=== PATIENT | female | born 1940 | race Caucasian/White ===

== ENCOUNTER → 2016-11-13 | Outpatient (CLI) | payer OTHER ==
[~2016-11-13] MED LIST: ACULAR10 ML OPHTHALMIC; ADULT LOW DOSE81 MG PO; ADVIL100 M2; ADVIL100 M2 PO; ALBUTEROL INH INH; CALCIUM 500 WI1 EAC3 PO; CARDIO OMEGA B1 EACH PO; CELEBREX 200 M200 M1 PO; COUMADIN 5 MG TA5 M1; ECOTRIN325 MG PO; FLOVENT HFA 1110 MCG INH; MULTIVITAMINS PO; NEXIUM40 MG PO; OMNARIS NASAL; PATANASE30.5 GM NASAL; PEPCID40 MG PO; ROBAXIN 750 MG750 M1 PO; SIMVASTATIN40 MG PO; SINGULAIR 10 MG10 M1 PO; TYLENOL EX-STR500 M2; VITAMIN D1000 UNI1 PO
== END ==
LOC: MRI 13:42
DX: M19.011 Primary osteoarthritis, right shoulder (principal); M25.411 Effusion, right shoulder; M75.21 Bicipital tendinitis, right shoulder; M75.101 Unspecified rotator cuff tear or rupture of right shoulder, not specified as traumatic; M25.511 Pain in right shoulder

== ENCOUNTER → 2017-09-13 | Outpatient (CLI) | payer OTHER ==
[~2017-09-13] MED LIST changes: +ACULAR 0.5% EYE5 ML OPHTHALMIC; -ACULAR10 ML OPHTHALMIC; +ASPIR 8181 MG PO; +COMBIVENT INH; +DEXILANT60 MG PO; -FLOVENT HFA 1110 MCG INH; +FLOVENT HFA 4444 MCG INH; +QNASL8.7 GM NASAL
== END ==
LOC: MRI 09:21
DX: S43.491A Other sprain of right shoulder joint, initial encounter (principal); M19.011 Primary osteoarthritis, right shoulder; M25.411 Effusion, right shoulder; X58.XXXA Exposure to other specified factors, initial encounter; Y93.89 Activity, other specified; Y92.89 Other specified places as the place of occurrence of the external cause; Y99.8 Other external cause status

== ENCOUNTER 2017-11-27 05:28 | Inpatient (IN) | payer OTHER ==
[2017-11-18 13:22] LABS: HEMOGLOBIN 13.7 gm/dL (12.0-15.0); MCH 29.5 pg (26.0-34.0); MCHC 33.5 g/dL (28.0-37.0); MCV 88.1 fL (80.0-100.0); RBC 4.66 mil/uL (4.20-5.00); RDW 14.6 % (10.5-14.5); WBC 6.8 thou/uL (4.0-11.0)
[2017-11-18 13:29] LABS: URINE BILIRUBIN NEGATIVE (Negative); URINE BLOOD TRACE (Negative); URINE CLARITY CLEAR; URINE COLOR YELLOW; URINE GLUCOSE-RANDOM* NEGATIVE (Negative); URINE KETONES NEGATIVE (Negative); URINE NITRITE-REFLEX NEGATIVE (Negative); URINE PROTEIN (DIPSTICK) NEGATIVE (Negative); URINE UROBILINOGEN 0.2 E.U./dl (0.2-1.0)
[2017-11-18 13:31] LABS: URINE LEUKOCYTES-REFLEX 1+ (Negative)
[2017-11-18 13:35] LABS: CASTS None Seen /LPF (None Seen); CRYSTALS None Seen /LPF (None Seen); SQUAMOUS >10 Many /LPF (0-3); URINE RBC 0-2 Rare /HPF (0-2); URINE WBC-REFLEX 0-5 Rare /HPF (0-5)
[2017-11-18 13:36] LABS: BACTERIA-REFLEX None Seen /HPF (None Seen)
[2017-11-18 13:40] LABS: CALCIUM 9.3 mg/dL (8.5-10.1); CREATININE 0.7 mg/dL (0.6-1.0); POTASSIUM 4.1 mmol/L (3.5-5.1)
[2017-11-18 13:41] LABS: PROTIME 10.3 Seconds (9.3-11.4)
[~2017-11-27] VITALS: Ht 160 cm; Wt 71.7 kg
[2017-11-27] VITALS (7 sets, daily range): BP systolic 90–152; BP diastolic 51–79
--- NOTE | ~2017-11-27 | O ---
[facility] [place] [address] OPERATIVE REPORT Name: NNEKA TREJO Room #: 407-P ADM IN M.R.#: [id number] Admission: 11/27/17 Attend Phys: Casa Marques Discharge: Date of : 44 Report #: [id number] THIS REPORT FOR: //name// CC: Casa Bar DATE OF SERVICE: 11/27/2017 PREOPERATIVE DIAGNOSES: Right shoulder pain, osteoarthritis, biceps tendinopathy. POSTOPERATIVE DIAGNOSES: Right shoulder pain, osteoarthritis, biceps tendinopathy with intraarticular loose body. PROCEDURE PERFORMED: Right total shoulder arthroplasty with open biceps tenodesis, intraarticular loose body removal. SURGEON: Casa Riley MD ANESTHESIA: General with preoperative ultrasound-guided interscalene block. FLUIDS: 900 mL crystalloid. ESTIMATED BLOOD LOSS: Approximately 50 mL. IMPLANTS UTILIZED: DePuy Global Unite size 10 humeral stem with 135 degree proximal body, 44 x 18 eccentric humeral head and a size 40 anchor peg glenoid. DESCRIPTION OF PROCEDURE: After proper identification of the patient and operative site in preoperative holding area, the operative site was signed by myself. Prophylactic antibiotics given. The patient elected to receive an interscalene block after reviewing the risks, benefits, alternatives and potential complications with anesthesia. After satisfactory block, the patient was then brought back to the operative suite. The patient has MULTIPLE MEDICATIONS ALLERGIES and/or sensitivities, which we reviewed potential treatment options and medication usage preoperatively. The patient was brought back to the operative suite after induction of satisfactory general anesthesia per endotracheal tube. She was carefully positioned in the beach chair position with head of bed elevated approximately 40 degrees. Great care was taken to position her cervical spine in a neutral position as she has significant sensitivity with positioning of this. Right shoulder was sterilely prepped and draped in usual manner. Final skin draping was with Ioban. Anterior deltopectoral approach was planned. A Eferio limb positioning system was utilized throughout the entire procedure to aid in patient limb positioning. Anterior deltopectoral approach was planned. Skin was incised sharply. Full thickness skin flaps were developed. Cephalic vein was identified and retracted [address] [address] OPERATIVE REPORT Name: NNEKA TREJO JAMIL Room #: 407-P ADM IN M.R.#: [id number] Admission: 11/27/17 Attend Phys: Casa Marques Discharge: Date of : 44 Report #: [id number] laterally. Subdeltoid adhesions were carefully released. A Tata deltoid retractor was utilized to retract the soft tissues. At this point, a tenosynovitis about the biceps tendon and partial thickness tearing was noted. This was tenodesed to the undersurface of the pectoralis major tendon. The bicipital groove was then opened as well as the rotator interval. Joint fluid was evacuated. Anterior circumflex vessels were identified, ligated and cauterized. A lesser tuberosity osteotomy was performed using a flexible osteotome. The anterior capsule was carefully excised off the humerus. Humeral head was then rotated into the wound. Extensive arthrosis was noted, eburnation of the bone, large peripheral spurring, as well as an intraarticular loose body within the subscapularis recess, which was evacuated and it measured approximately 1 cm in size. Peripheral osteophytes were carefully removed and a humeral head osteotomy was performed in approximately 25 degrees of retroversion, matching her kalispel retroversion. The proximal humerus had a small cyst, but still within the metaphyseal region, but this still appeared to be amenable to primary press-fit type fixation. Hand reaming up to a size 10 stem was performed which matched the preoperative templating. Trial stem was carefully inserted and a protection plate was then placed about the proximal humerus. The supraspinatus, infraspinatus and teres minor were otherwise intact. At this point, the joint was carefully distracted and the labrum and biceps tendon were removed circumferentially. Very thickened anterior capsule was carefully excised and an anterior Bankart retractor was used to retract the subscapularis. Axillary nerve was identified and protected throughout the entire procedure. The inferior capsule was carefully released off the glenoid. There was excellent glenoid visualization. Small amount of posterior wear and a biconcave appearance to the glenoid was noted. The +3 40 trial provided the best overall fit and ability to center the pin and ream the high side. Guide pin was inserted into the glenoid. Its position was verified by palpation as well. After this was satisfactory placed, the glenoid face was reamed. Any remaining soft tissue was then carefully removed around this. After a satisfactory reaming of the glenoid was performed, a step drill was utilized. The multipin guide was carefully inserted and the peripheral pegs were drilled. Derotation pegs were utilized, size 40 mm trial was inserted. It had excellent fit and stability. This was removed. Glenoid was irrigated with antibiotic irrigant. FloSeal was utilized and bone graft was applied to the implants and cement was prepared and mixed, it was placed within a Eliu syringe. The FloSeal was irrigated out. This area was dried, the peripheral pegs were pressurized with a Eliu syringe and cement and then the bone grafted glenoid was carefully impacted into position. It had excellent fit and stability, was held firmly in place until the cement had cured. At this point, it was protected with plastic dura. Humerus was delivered and a 44 x 18 head eccentric in nature provided the best overall recreation of the proximal humeral anatomy. The Global Unite brosteotome was used and inserted. Trial implants revealed a size 10 stem with a 44 x 18 head, 135 degree body provided the best overall fit and stability and these were what was implanted. The four #2 FiberWires were placed through drill holes in the anterior aspect of the humerus. The [address] [address] OPERATIVE REPORT Name: NNEKA TREJO Room #: 407-P ADM IN M.R.#: [id number] Admission: 11/27/17 Attend Phys: Casa Marques Discharge: Date of : 44 Report #: [id number] 2 were wrapped around the stem, which was carefully impacted into position, it had excellent purchase and stability. The head was then positioned eccentricity, was placed superiorly and there is approximately 50% translation when this was reduced. Again, overall good recreation of the proximal humeral anatomy. The joint was thoroughly irrigated with antibiotic irrigant. The lesser tuberosity was reduced and the subscapularis was repaired with modified Dilan-Maldonado technique sutures. The four #2 FiberWires were tied and the #2 FiberWire was used to close the lateral portion of the rotator interval. The shoulder could easily be externally rotated 45 degrees. Shoulder was thoroughly irrigated with normal saline. One gram of vancomycin powder was utilized, half of this deep, half of it more sub-superficial. 0 Vicryl was used to close the deltopectoral interval, 2-0 Vicryl for subcutaneous tissues, followed by a running 3-0 Monocryl. This was sealed with Dermabond. Sterile dressing was applied. She was awakened and transferred to the recovery room in stable condition. <ELECTRONICALLY SIGNED> By: Casa Riley MD 11/28/17 1406 1115 1221 Casa Riley MD /nt
--- NOTE | ~2017-11-27 | EKG ---
[address] [address] ELECTROCARDIOGRAM REPORT Name: DOMONIQUE TREJOGILLIAN NEGRON Room #: PRE IN M.Lila#: [id number] Admission: Attend Phys: Casa Marques Discharge: Date of : 44 Report #: [id number] THIS REPORT FOR: //name// [facility] Test Date: 2017-11-18 Test Time: 13:16:33 Pat Name: NNEKA TREJO Department: Room: Gender: F Regulatory Lead: QUINCY DUMAS : 1940 Requested By: Casa Riley Order Number: [id number] MD: Truman Posadas Measurements Intervals [place] Rate: 62 P: 2 MS: 148 QRS: -2 QRSD: 104 T: 7 QT: 396 QTc: 402 Interpretive Statements Sinus rhythm No significant abnormality No previous ECG available for comparison Electronically Signed On 11-19-2017 9:40:28 CDT by Truman Posadas [email or web address] <ELECTRONICALLY SIGNED> By: Truman Posadas MD, [facility] 11/19/17 0940 1316 1316 Truman Posadas MD, FACC /EPI
[2017-11-28 00:21] VITALS: BP 102/54
[2017-11-28 04:22] VITALS: BP 98/49
[2017-11-28 06:22] LABS: ABSOLUTE NEUTROPHILS 8.9 thou/uL (1.4-8.2); BASOPHILS 0.1 % (0.0-2.0); EOSINOPHILS 0.1 % (0.0-3.0); HEMATOCRIT 31.7 % (37.0-47.0); HEMOGLOBIN 10.4 gm/dL (12.0-15.0); LYMPHOCYTES 13.1 % (24.0-44.0); MCH 29.1 pg (26.0-34.0); MCV 88.2 fL (80.0-100.0); MONOCYTES 7.2 % (1.0-8.0); PLATELET COUNT 297 thou/uL (150-400); POLYS 79.5 % (36.0-66.0); RBC 3.59 mil/uL (4.20-5.00); RDW 15.1 % (10.5-14.5); WBC 11.1 thou/uL (4.0-11.0)
[2017-11-28 06:23] LABS: CALCIUM 8.3 mg/dL (8.5-10.1); CREATININE 0.6 mg/dL (0.6-1.0); POTASSIUM 3.9 mmol/L (3.5-5.1)
[2017-11-28 08:09] VITALS: BP 106/43
[2017-11-28 16:34] VITALS: BP 114/58
[2017-11-28 20:08] VITALS: BP 109/56
[2017-11-29 04:00] VITALS: BP 98/55
[2017-11-29 07:36] VITALS: BP 104/53
[2017-11-29 10:21] VITALS: BP 104/53
== END 2017-11-29 12:40 | disposition home health service (06) | DRG 483 ==
LOC: PRE 05:28 → TBA 05:34 → 4N 05:34 → PRE 11:20 → 4N 13:25 → ENTRNSPT 11-29 12:28 → EDTRNSPTSTS 11-29 12:34 → 4N 11-29 12:40
PROVIDERS: Orthopaedic Surgery Sports Medicine
DX: M19.011 Primary osteoarthritis, right shoulder (principal); K21.9 Gastro-esophageal reflux disease without esophagitis; J45.909 Unspecified asthma, uncomplicated; H15.009 Unspecified scleritis, unspecified eye; Z96.649 Presence of unspecified artificial hip joint; G57.60 Lesion of plantar nerve, unspecified lower limb; Z88.2 Allergy status to sulfonamides; Z88.8 Allergy status to other drugs, medicaments and biological substances; Z88.6 Allergy status to analgesic agent; Z88.0 Allergy status to penicillin; Z91.013 Allergy to seafood
CPT/HCPCS: 10790; 50010; 50101; 50172; 50386; 50417; 50697; 50733; 51320; 51751; 51771; 52001; 52138; 52282; 53000; 53078; 54118; 56521; 56524; 56525; 56526; 56530; 57095; 62110; 62900; 70005